=== PATIENT | female | born 1980 | race American Indian/Alaskan Native ===

== ENCOUNTER 2021-10-03 11:28 | Outpatient (CLI) | payer OTHER ==
--- NOTE | 2021-10-03 13:56 | Mammography Report ---
BILATERAL DIGITAL DIAGNOSTIC MAMMOGRAM WITH CAD CONVENTIONAL, 10/03/2021 LEFT LIMITED BREAST ULTRASOUND CLINICAL INFORMATION / INDICATION: Left palpable abnormality TECHNIQUE: Digital bilateral mammographic imaging was performed. Limited ultrasound was performed. Th is examination was interpreted with the benefit of Computer-Aided Detection (CAD) analysis. COMPARISON: None, baseline FINDINGS: Breast Density: The breasts are heterogeneously dense, which may obscure small masses. MAMMOGRAPHIC FINDINGS: At the site of palpable concern in the left mid breast at approximately 12:30 a 3.2 cm spiculated mass with architectural distortion and minimal calcification is seen. No abnormal ities are seen in the right breast. ULTRASOUND FINDINGS: Targeted ultrasound evaluation was performed of the area of interest. At the sit e of palpable concern and radiographic lesion, a 2.6 cm spiculated irregular ill-defined mixed echoge nicity lesion is seen with heavy shadowing. No significant internal vascularity is seen. Architectura l distortion is noted as on mammogram. IMPRESSION: Spiculated mass with architectural distortion at the site of palpable concern in the left breast. Follow up recommendation: Ultrasound-guided biopsy BI-RADS Category 5: HIGHLY SUGGESTIVE OF MALIGNANCY. A "normal" or negative report should not discourage follow up or biopsy of a clinically significant f inding. A written summary of these findings will be mailed to the patient. The patient will be entered into a mammography reporting system which will generate a reminder letter for the patient's next appointmen t at the appropriate interval. According to the [employer], yearly mammograms are recommended starting at age 40 and continuing as long as a woman is in good health. Breast MRI is recommended for women with an corky roximately 20-25% or greater lifetime risk of breast cancer, including women with a strong family his tory of breast or ovarian cancer and women who have been treated for Hodgkin's disease. Signer Name: Florentino Mendoza MD Signed: 10/03/2021 1:52 PM Workstation Name: [employer]
== END 2021-10-03 11:29 | disposition home or self-care (01) ==
LOC: MAMMO 11:28
PROVIDERS: ATTEND Advanced Practice Midwife
DX: R92.1 Mammographic calcification found on diagnostic imaging of breast (principal); N60.02 Solitary cyst of left breast; N63.23 Unspecified lump in the left breast, lower outer quadrant
CPT/HCPCS: 77066